=== PATIENT | male | born 1975 | race African-American/Black ===

== ENCOUNTER 2016-07-14 10:32 | Emergency (ER) | payer OTHER ==
[2016-07-14 10:38] VITALS: TEMP 98; BMI 22.9
--- NOTE | 2016-07-14 11:01 | PDOC ---
History of Present Illness - General Chief Complaint: Lightheaded Stated Complaint: WEAKNESS,DIZINESS,NAUSEA Time Seen by Provider: 07/14/16 10:57 History Source: Patient Exam Limitations: No Limitations - History of Present Illness Initial Comments: CHIEF COMPLAINT: 40 y/o afebrile male with PMH chronic marijuana and PCP abuse complaining of lightheaded, nausea, and dizziness this morning. HISTORY OF PRESENT ILLNESS: The patient was at his group meeting this morning when he states he began feeling "not well". He admits to feeling lightheaded, dizzy and nauseous. He did smoke marijuana this morning and PCP last night. He did eat breakfast this morning. He denies f/c, ROB, neck pain, cough, CP, SOB , v/d, abd pain, body aches. Vital signs on arrival are within normal limits. REVIEW OF SYSTEMS: GENERAL/CONSTITUTIONAL: No fever/chills. No weakness. No weight change. HEAD, EYES, EARS, NOSE AND THROAT: No change in vision. No ear pain or discharge. No sore throat. CARDIOVASCULAR: No chest pain or shortness of breath. RESPIRATORY: No cough, wheezing, or hemoptysis. GASTROINTESTINAL: +nausea. No vomiting, diarrhea, constipation, abd pain. GENITOURINARY: No dysuria, frequency, or change in urination. MUSCULOSKELETAL: No joint or muscle swelling or pain. No neck or back pain. SKIN: No rash or easy bruising. NEUROLOGIC: +lightheaded. No headache, loss of consciousness, or loss of sensation. PHYSICAL EXAM: GENERAL: The patient is awake, alert, and fully oriented, in no acute distress. He is well appearing and ambulatory. HEAD: Normal with no signs of trauma. ENT: Pupils equal, round and reactive to light, extraocular movements intact, sclera anicteric, conjunctiva clear. Neck supple. LUNGS: Clear to auscultation bilaterally. Normal excursion. No respiratory distress or use of accessory muscles. CV: RRR, S1/S2, no MRG. Cap refill < 2 sec. ABDOMEN: Soft, non-distended, non-tender even to deep palpation, no hepatomegaly or splenomegaly, no masses. EXTREMITIES: Normal range of motion, no edema. NEUROLOGICAL: Normal speech, normal gait. CN II-XII grossly intact. PSYCH: Normal mood, normal affect. SKIN: Warm, dry, normal turgor, no rashes or lesions noted. Past History - Past Medical History Allergies/Adverse Reactions: Allergies Allergy/AdvReac Type Severity Reaction Status Date / Time No Known Allergies Allergy Verified 07/14/16 10:35 Home Medications: Ambulatory Orders NK [No Known Home Medication] 07/14/16 Other medical history: pcp abuse, shahid - Psycho/Social/Smoking Cessation Hx Anxiety: No Suicidal Ideation: No Smoking History: Current every day smoker Have you smoked in the past 12 months: Yes Number of Cigarettes Smoked Daily: 7 Information on smoking cessation initiated: Yes 'Breaking Loose' booklet given: 07/14/16 Hx Alcohol Use: No Drug/Substance Use Hx: No Substance Use Type: Marijuana *Physical Exam - Vital Signs Last Vital Signs Temp Pulse Resp BP Pulse Ox 98.0 F 72 18 113/72 100 07/14/16 10:36 07/14/16 10:36 07/14/16 10:36 07/14/16 10:36 07/14/16 10:36 Heart Score/ECG Review - ECG Intrepretation Comment:: Twelve-lead EKG was performed and reviewed by Dr. Maloney. There is normal sinus rhythm with a normal rate. The axis is normal. The intervals are normal. There are no ST or T wave abnormalities. Impression: Normal twelve-lead EKG ED Treatment Course - LABORATORY CBC & Chemistry Diagram: 07/14/16 11:26 07/14/16 11:26 Medical Decision Making - Medical Decision Making A/P: 40 y/o afebrile male with c/o nausea, dizziness and lightheaded today. Plan is as follows: 1. labs 2. EKG 3. CXR 4. IV fluids 5. IV zofran CXR IMPRESSION: Normal chest. Labs unremarkable EKG ok The patient states he feels much better after fluids and zofran. Will discharge to home with supportive care instructions. Instructed him to return to the ER with any worsening or concerning symptoms. The patient verbalizes understanding of all instructions, has no further questions and is awaiting discharge. *DC/Admit/Observation/Transfer Diagnosis at time of Disposition: Light-headed feeling, Nausea - Discharge Dispostion Disposition: HOME Condition at time of disposition: Improved - Referrals Referrals: Honorio Palomino MD [Primary Care Provider] - - Patient Instructions Printed Discharge Instructions: DI for Nausea -- Adult, DI for Dizziness- Nonvertigo Additional Instructions: Discharge Instructions: -Drink at least 64oz of water daily -Get plenty of rest -Follow up with your doctor within 1 week -Return to the ER with any worsening or concerning symptoms
[2016-07-14] MEDS ORDERED: ONDANSETRON 4 MG/2 ML VIAL IVPUSH ONE (11:08)
[2016-07-14] MEDS ORDERED: SODIUM CHLORIDE 1,000 ML IV STA (11:08)
[2016-07-14] MEDS ORDERED: ONDANSETRON 4 MG/2 ML VIAL ONE (11:28)
[2016-07-14 11:31] LABS: BASOPHIL 1.3 % (0-2.0); EOSINOPHIL 3.8 % (0-4.5); MCH 27.3 pg (25.7-33.7); MEAN CELL VOLUME 82.8 fl (80-96); NEUTROPHILS 52.3 % (42.8-82.8); PLATELET COUNT 214 K/MM3 (134-434); WHITE BLOOD COUNT 4.7 K/mm3 (4.0-10.0)
[2016-07-14 11:43] LABS: INR 1.17 (0.82-1.09); PROTHROMBIN TIME (PATIENT) 12.9 SEC (9.98-11.88)
--- NOTE | 2016-07-14 12:02 | PDOC ---
*Physical Exam - Vital Signs Last Vital Signs Temp Pulse Resp BP Pulse Ox 98.0 F 72 18 113/72 100 07/14/16 10:36 07/14/16 10:36 07/14/16 10:36 07/14/16 10:36 07/14/16 10:36 Heart Score/ECG Review #1 ECG reviewed & interpreted by me at: 11:59 07/14/16 11:59 Twelve-lead EKG was performed and reviewed by me. There is normal sinus rhythm with a normal rate OF 72 bpm. Left axis deviation. The intervals are normal - pr:162ms, QRS:120ms, QTc:424ms. There are no ST elevation or depression. T waves nml ED Treatment Course - LABORATORY CBC & Chemistry Diagram: 07/14/16 11:26 07/14/16 11:26 - ADDITIONAL ORDERS Additional order review: Laboratory Results 07/14/16 11:26 INR 1.17 H 07/14/16 11:26 RBC 4.48 MCV 82.8 MCHC 33.0 RDW 14.0 MPV 7.0 L Neutrophils % 52.3 Lymphocytes % 32.0 Monocytes % 10.6 H Eosinophils % 3.8 Basophils % 1.3 - RADIOLOGY Radiology Studies Ordered: Category Date Time Status CHEST X-RAY PORTABLE* [RAD] Stat Radiology 07/14/16 10:54 Completed Medical Decision Making - Medical Decision Making 07/14/16 11:59 Pt seen by Midlevel Provider under my direct supervision Ancillary studies reviewed I agree with plan as outlined by Midlevel Provider *DC/Admit/Observation/Transfer Diagnosis at time of Disposition: Light-headed feeling, Nausea - Discharge Dispostion Disposition: HOME Condition at time of disposition: Improved - Referrals Referrals: Honorio Palomino MD [Primary Care Provider] - - Patient Instructions Printed Discharge Instructions: DI for Nausea -- Adult, DI for Dizziness- Nonvertigo Additional Instructions: Discharge Instructions: -Drink at least 64oz of water daily -Get plenty of rest -Follow up with your doctor within 1 week -Return to the ER with any worsening or concerning symptoms
[2016-07-14 12:04] LABS: ALBUMIN 3.8 g/dl (3.4-5.0); ALK PHOS 69 U/L (45-117); ANION GAP 9 (8-16); BILIRUBIN,TOTAL 0.4 mg/dL (0.2-1.0); CALCIUM 8.5 mg/dL (8.5-10.1); CO2 28 mmol/L (21-32); CREATININE 0.8 mg/dL (0.7-1.3); GLUCOSE,RANDOM 87 mg/dL (74-106); SGOT/AST 20 U/L (15-37); SGPT/ALT 17 U/L (12-78)
[2016-07-14 12:06] LABS: TROPONIN I < 0.02 ng/ml (0.00-0.05)
[2016-07-14] MEDS ORDERED: KETOROLAC TROMETHAMINE 30 MG/1 ML VIAL IVPUSH ONE (13:58)
[2016-07-14] MEDS ORDERED: KETOROLAC TROMETHAMINE 30 MG/1 ML VIAL ONE (14:06)
[2016-07-14 15:06] LABS: URINE APPEARANCE CLEAR; URINE BILIRUBIN NEGATIVE (NEGATIVE); URINE BLOOD NEGATIVE (NEGATIVE); URINE COLOR LTYELLOW; URINE GLUCOSE (UA) NEGATIVE (NEGATIVE); URINE KETONE NEGATIVE (NEGATIVE); URINE NITRITE NEGATIVE (NEGATIVE); URINE PROTEIN NEGATIVE (NEGATIVE); URINE UROBILINOGEN NEGATIVE E.U./dl (0.2-1.0)
[2016-07-14 15:07] LABS: URINE LEUK ESTERASE TRACE (NEGATIVE)
[2016-07-14 15:10] LABS: URINE MUCUS RARE; URINE RBC 1 /hpf (0-3); URINE WBC 8 /hpf (3-5)
[2016-07-14 15:23] LABS: URINE MARIJUANA THC POSITIVE ng/ml (CUTOFF=50)
--- NOTE | 2016-07-14 15:46 | EKG ---
Test Reason : Blood Pressure : / mmHG Vent. Rate : 072 BPM Atrial Rate : 072 BPM P-R Int : 162 ms QRS Dur : 120 ms QT Int : 388 ms P-R-T Axes : 074 -46 042 degrees QTc Int : 424 ms NORMAL SINUS RHYTHM LEFT ANTERIOR FASCICULAR BLOCK SEPTAL INFARCT , AGE UNDETERMINED ABNORMAL ECG NO PREVIOUS ECGS AVAILABLE Confirmed by KIRK JARAMILLO MD ([id number]) on 07/14/2016 3:46:00 PM Referred By: Confirmed By:KIRK JARAMILLO MD
[2016-07-14 15:50] VITALS: BP 116/68; PULSE 62
== END 2016-07-14 15:49 | disposition home or self-care (01) ==
LOC: JER 10:32
PROC: 3E0333Z Introduction of Anti-inflammatory into Peripheral Vein, Percutaneous Approach (ICD-10-PCS; principal; 2016-07-14)
PROC: 3E033GC Introduction of Other Therapeutic Substance into Peripheral Vein, Percutaneous Approach (ICD-10-PCS; 2016-07-14)
PROC: 3E0337Z Introduction of Electrolytic and Water Balance Substance into Peripheral Vein, Percutaneous Approach (ICD-10-PCS; 2016-07-14)
DX: R42 Dizziness and giddiness (principal); R11.0 Nausea; F17.210 Nicotine dependence, cigarettes, uncomplicated
CPT/HCPCS: 36415; 71010-TC; 80053; 80307; 81003; 81015; 82550; 82553; 84484; 85025; 85610; 93005; 93010; 96361; 96374; 96375; 99284-25

== ENCOUNTER 2016-08-25 13:06 | Inpatient (IN) | payer OTHER ==
[2016-08-25 14:05] VITALS: BMI 22.1
--- NOTE | 2016-08-25 20:19 | HP ---
Admission ROS [facility] Chief Complaint: seeking rehab for pcp and thc use Allergies/Adverse Reactions: Allergies Allergy/AdvReac Type Severity Reaction Status Date / Time No Known Allergies Allergy Verified 08/25/16 19:53 History of Present Illness: 40 Y.O. MALE WITH CANNABIS AND PCP DEPENDENCE ADMITTED TO REHAB. DENIES PREVIOUS DETOX /REHAB SERVICES. DENIES ANY SIGNIFICANT PERIOD OF CLEAN TIME. Exam Limitations: No Limitations - Ebola screening Have you traveled outside of the country in the last 21 days: No Have you had contact with anyone from an Ebola affected area: No Have you been sick,other than usual withdrawal symptoms: No Do you have a fever: No - Review of Systems Constitutional: No Symptoms Reported EENT: reports: No Symptoms Reported Respiratory: reports: No Symptoms reported Cardiac: reports: No Symptoms Reported GI: reports: No Symptoms Reported : reports: No Symptoms Reported Musculoskeletal: reports: No Symptoms Reported Integumentary: reports: No Symptoms Reported Neuro: reports: No Symptoms reported Endocrine: reports: No Symptoms Reported Hematology: reports: No Symptoms Reported Psychiatric: reports: No Sypmtoms Reported Other Systems: Reviewed and Negative Patient History - Patient Medical History Hx Anemia: No Hx Asthma: No Hx Chronic Obstructive Pulmonary Disease (COPD): No Hx Cancer: No Hx Cardiac Disorders: No Hx Congestive Heart Failure: No Hx Hypertension: No Hx Hypercholesterolemia: No Hx Pacemaker: Yes (NON COMPLIANT WITH MEDS) HX Cerebrovascular Accident: No Hx Seizures: No Hx Dementia: No Hx Diabetes: No Hx Gastrointestinal Disorders: No Hx Liver Disease: No Hx Genitourinary Disorders: No Hx Sexually Transmitted Disorders: No Hx Renal Disease (ESRD): No Hx Thyroid Disease: No Hx Human Immunodeficiency Virus (HIV): No Hx Hepatitis C: No Hx Depression: Yes (NON COMPLIANT WITH MEDS) Hx Suicide Attempt: No Hx Bipolar Disorder: No Hx Schizophrenia: No Other Medical History: INSOMNIA - Patient Surgical History Past Surgical History: No - PPD History Previous Implant?: Yes Documented Results: Negative w/o proof Implanted On Prior R Admission?: No PPD to be Administered?: Yes - Smoking Cessation Smoking history: Current every day smoker Have you smoked in the past 12 months: Yes Aproximately how many cigarettes per day: 7 Cigars Per Day: 0 Hx Chewing Tobacco Use: No Initiated information on smoking cessation: Yes 'Breaking Loose' booklet given: 08/25/16 - Substance & Tx. History Hx Alcohol Use: No Hx Substance Use: Yes Substance Use Type: Marijuana, Tranquilizers (PCP) Hx Substance Use Treatment: No - Substances Abused PCP Route: Smoking Frequency: Daily Amount used: 1 BLUNT Age of first use: 25 Date of Last Use: 08/19/16 THC Route: Smoking Frequency: 3-6 times per week Amount used: 1 BLUNT Age of first use: 24 Date of Last Use: 06/27/16 Family Disease History - Family Disease History Family Disease History: Other: Mother (ALCOHOLISM) Admission Physical Exam S - Vital Signs Vital Signs: Vital Signs - 24 hr 08/25/16 14:03 Temperature 96.9 F L Pulse Rate 71 Respiratory 18 Rate Blood Pressure 119/82 Cleared for Admission [facility] - Detox or Rehab Detox Regimen/Protocol: Not Applicable Claeared for Rehab Admission: Yes [facility] Breath Alcohol Content Breath Alcohol Content: 0 Urine Drug Screen - Results Drug Screen Negative: No Urine Drug Screen Results: PCP-Phencyclidine
[2016-08-25] MEDS ORDERED: guaiFENesin/D-METHORPHAN HB 10 ML UNIT-DOSE CUPS PO PRN (20:26)
[2016-08-25] MEDS ORDERED: P-EPHED 60MG/TRIPROLIDI 2.5MG TABLET PO PRN (20:26)
[2016-08-25] MEDS ORDERED: MAG HYDROX/AL HYDROX/SIMETH 30 ML UNIT-DOSE CUP PO PRN (20:26)
[2016-08-25] MEDS ORDERED: MAGNESIUM HYDROX 2400MG/30ML ORAL SUSPENSION 30 ML CUP PO PRN (20:26)
[2016-08-25] MEDS ORDERED: LOPERAMIDE HCL 2 MG CAPSULE PO PRN (20:26)
[2016-08-25] MEDS ORDERED: MENTHOL/PHENOL 1 EACH UD MM PRN (20:26)
[2016-08-25] MEDS ORDERED: hydrOXYzine PAMOATE 50 MG CAPSULE (FP) PO PRN (20:26)
[2016-08-25] MEDS ORDERED: NICOTINE POLACRILEX 2 MG GUM BUC PRN (20:26)
[2016-08-25] MEDS ORDERED: MAGNESIUM CITRATE 300 ML BOTTLE PO PRN (20:26)
[2016-08-25] MEDS ORDERED: diphenhydrAMINE HCL 50 MG CAPSULE PO PRN (20:26)
[2016-08-25] MEDS: THIAMINE HCL 100 MG TABLET (FP) PO SCH (22:22)
[2016-08-25] MEDS: NICOTINE 14 MG/24 HOURS TOPICAL PATCH TD SCH (22:23)
[2016-08-25 22:46] LABS: URINE APPEARANCE CLEAR; URINE BILIRUBIN NEGATIVE (NEGATIVE); URINE BLOOD NEGATIVE (NEGATIVE); URINE COLOR LTYELLOW; URINE GLUCOSE (UA) NEGATIVE (NEGATIVE); URINE KETONE NEGATIVE (NEGATIVE); URINE LEUK ESTERASE NEGATIVE (NEGATIVE); URINE NITRITE NEGATIVE (NEGATIVE); URINE PROTEIN NEGATIVE (NEGATIVE); URINE UROBILINOGEN NEGATIVE E.U./dl (0.2-1.0)
[2016-08-26 10:28] LABS: MCH 27.4 pg (25.7-33.7); MEAN CELL VOLUME 83.1 fl (80-96); MEAN PLT VOLUME 7.9 fl (7.5-11.1); PLATELET COUNT 189 K/MM3 (134-434); RDW 14.5 % (11.9-15.9); WHITE BLOOD COUNT 4.6 K/mm3 (4.0-10.0)
[2016-08-26 10:56] LABS: ALBUMIN 3.5 g/dl (3.4-5.0); ALK PHOS 62 U/L (45-117); ANION GAP 9 (8-16); BILIRUBIN,TOTAL 0.5 mg/dL (0.2-1.0); CALCIUM 8.5 mg/dL (8.5-10.1); CO2 26 mmol/L (21-32); CREATININE 0.8 mg/dL (0.7-1.3); GLUCOSE,RANDOM 67 mg/dL (74-106); SGOT/AST 20 U/L (15-37); SGPT/ALT 19 U/L (12-78); TOT PROT 6.6 g/dl (6.4-8.2)
[2016-08-26] MEDS: NICOTINE 14 MG/24 HOURS TOPICAL PATCH TD SCH (11:11)
[2016-08-26] MEDS: PRENATAL VITAMINS W/ FOLIC ACID TABLET (FP) PO SCH (11:11)
[2016-08-26 13:59] LABS: HIV 1 & 2 AB NEGATIVE; HIV 1 AGp24 NEGATIVE
--- NOTE | 2016-08-26 18:25 | EKG ---
Test Reason : Blood Pressure : / mmHG Vent. Rate : 053 BPM Atrial Rate : 053 BPM P-R Int : 152 ms QRS Dur : 140 ms QT Int : 430 ms P-R-T Axes : 074 -42 -35 degrees QTc Int : 403 ms SINUS BRADYCARDIA LEFT AXIS DEVIATION NON-SPECIFIC INTRA-VENTRICULAR CONDUCTION BLOCK T WAVE ABNORMALITY, CONSIDER INFERIOR ISCHEMIA ABNORMAL ECG WHEN COMPARED WITH ECG OF 14-JUL-2016 11:13, CRITERIA FOR SEPTAL INFARCT ARE NO LONGER PRESENT T WAVE INVERSION NOW EVIDENT IN INFERIOR LEADS Confirmed by KEENAN SALAZAR MD ([id number]) on 08/26/2016 6:25:23 PM Referred By: Alena Dyer Confirmed By:KEENAN SALAZAR MD
[2016-08-26] MEDS: THIAMINE HCL 100 MG TABLET (FP) PO SCH (22:25)
[2016-08-27] MEDS: PRENATAL VITAMINS W/ FOLIC ACID TABLET (FP) PO SCH (09:29)
[2016-08-27] MEDS: NICOTINE 14 MG/24 HOURS TOPICAL PATCH TD SCH (09:29)
[2016-08-27] MEDS: THIAMINE HCL 100 MG TABLET (FP) PO SCH (22:40)
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
[2016-08-28] MEDS: PRENATAL VITAMINS W/ FOLIC ACID TABLET (FP) PO SCH (09:40)
[2016-08-28] MEDS: NICOTINE 14 MG/24 HOURS TOPICAL PATCH TD SCH (09:40)
[2016-08-28] MEDS ORDERED: PT OWN MED DRAWER 7, Y5N ONE (11:19)
[2016-08-28] MEDS: SERTRALINE HCL 50 MG TABLET (FP) PO SCH (11:24)
[2016-08-28] MEDS: THIAMINE HCL 100 MG TABLET (FP) PO SCH (21:10)
[2016-08-28] MEDS: traZODone HCL 50 MG TABLET (FP) PO SCH (21:10)
[2016-08-29] MEDS: NICOTINE 14 MG/24 HOURS TOPICAL PATCH TD SCH (09:47)
[2016-08-29] MEDS: SERTRALINE HCL 50 MG TABLET (FP) PO SCH (09:47)
[2016-08-29] MEDS: PRENATAL VITAMINS W/ FOLIC ACID TABLET (FP) PO SCH (09:47)
[2016-08-29] MEDS: THIAMINE HCL 100 MG TABLET (FP) PO SCH (21:06)
[2016-08-29] MEDS: traZODone HCL 50 MG TABLET (FP) PO SCH (21:06)
[2016-08-30] MEDS: PRENATAL VITAMINS W/ FOLIC ACID TABLET (FP) PO SCH (09:40)
[2016-08-30] MEDS: NICOTINE 14 MG/24 HOURS TOPICAL PATCH TD SCH (09:40)
[2016-08-30] MEDS: SERTRALINE HCL 50 MG TABLET (FP) PO SCH (09:40)
[2016-08-30] MEDS: traZODone HCL 50 MG TABLET (FP) PO SCH (22:19)
[2016-08-30] MEDS: THIAMINE HCL 100 MG TABLET (FP) PO SCH (22:19)
[2016-08-30] MEDS: ACETAMINOPHEN 325 MG TABLET (FP) PO PRN (22:21)
[2016-08-30] MEDS ORDERED: PT OWN MED DRAWER 7, Y5N ONE (22:24)
[2016-08-31] MEDS: IBUPROFEN 400 MG TABLET (FP) PO PRN (08:24)
[2016-08-31] MEDS: PRENATAL VITAMINS W/ FOLIC ACID TABLET (FP) PO SCH (09:40)
[2016-08-31] MEDS: SERTRALINE HCL 50 MG TABLET (FP) PO SCH (09:40)
[2016-08-31] MEDS: NICOTINE 14 MG/24 HOURS TOPICAL PATCH TD SCH (09:41)
[2016-08-31] MEDS: traZODone HCL 50 MG TABLET (FP) PO SCH (21:09)
[2016-08-31] MEDS: THIAMINE HCL 100 MG TABLET (FP) PO SCH (21:09)
[2016-09-01] MEDS: SERTRALINE HCL 50 MG TABLET (FP) PO SCH (09:47)
[2016-09-01] MEDS: PRENATAL VITAMINS W/ FOLIC ACID TABLET (FP) PO SCH (09:47)
[2016-09-01] MEDS: NICOTINE 14 MG/24 HOURS TOPICAL PATCH TD SCH (09:48)
[2016-09-01] MEDS: traZODone HCL 50 MG TABLET (FP) PO SCH (21:07)
[2016-09-01] MEDS: THIAMINE HCL 100 MG TABLET (FP) PO SCH (21:07)
[2016-09-02] MEDS: PRENATAL VITAMINS W/ FOLIC ACID TABLET (FP) PO SCH (09:41)
[2016-09-02] MEDS: SERTRALINE HCL 50 MG TABLET (FP) PO SCH (09:41)
[2016-09-02] MEDS: NICOTINE 14 MG/24 HOURS TOPICAL PATCH TD SCH (09:41)
[2016-09-02] MEDS: THIAMINE HCL 100 MG TABLET (FP) PO SCH (21:15)
[2016-09-02] MEDS: traZODone HCL 50 MG TABLET (FP) PO SCH (21:15)
[2016-09-03] MEDS: NICOTINE 14 MG/24 HOURS TOPICAL PATCH TD SCH (10:52)
[2016-09-03] MEDS: PRENATAL VITAMINS W/ FOLIC ACID TABLET (FP) PO SCH (10:53)
[2016-09-03] MEDS: SERTRALINE HCL 50 MG TABLET (FP) PO SCH (10:53)
[2016-09-03] MEDS: traZODone HCL 50 MG TABLET (FP) PO SCH (21:54)
[2016-09-03] MEDS: THIAMINE HCL 100 MG TABLET (FP) PO SCH (21:54)
[2016-09-04] MEDS: SERTRALINE HCL 50 MG TABLET (FP) PO SCH (09:40)
[2016-09-04] MEDS: PRENATAL VITAMINS W/ FOLIC ACID TABLET (FP) PO SCH (09:40)
[2016-09-04] MEDS: NICOTINE 14 MG/24 HOURS TOPICAL PATCH TD SCH (09:41)
[2016-09-04] MEDS: THIAMINE HCL 100 MG TABLET (FP) PO SCH (21:18)
[2016-09-04] MEDS: traZODone HCL 50 MG TABLET (FP) PO SCH (21:19)
[2016-09-04] MEDS: ACETAMINOPHEN 325 MG TABLET (FP) PO PRN (21:19)
[2016-09-05] MEDS: PRENATAL VITAMINS W/ FOLIC ACID TABLET (FP) PO SCH (09:44)
[2016-09-05] MEDS: SERTRALINE HCL 50 MG TABLET (FP) PO SCH (09:45)
[2016-09-05] MEDS: IBUPROFEN 400 MG TABLET (FP) PO PRN (09:45)
[2016-09-05] MEDS: NICOTINE 14 MG/24 HOURS TOPICAL PATCH TD SCH (09:46)
[2016-09-05] MEDS: THIAMINE HCL 100 MG TABLET (FP) PO SCH (21:31)
[2016-09-05] MEDS: traZODone HCL 50 MG TABLET (FP) PO SCH (21:31)
[2016-09-06] MEDS: SERTRALINE HCL 50 MG TABLET (FP) PO SCH (09:50)
[2016-09-06] MEDS: NICOTINE 14 MG/24 HOURS TOPICAL PATCH TD SCH (09:50)
[2016-09-06] MEDS: PRENATAL VITAMINS W/ FOLIC ACID TABLET (FP) PO SCH (09:50)
[2016-09-06] MEDS: THIAMINE HCL 100 MG TABLET (FP) PO SCH (22:03)
[2016-09-06] MEDS: traZODone HCL 50 MG TABLET (FP) PO SCH (22:03)
[2016-09-07] MEDS: PRENATAL VITAMINS W/ FOLIC ACID TABLET (FP) PO SCH (09:33)
[2016-09-07] MEDS: NICOTINE 14 MG/24 HOURS TOPICAL PATCH TD SCH (09:33)
[2016-09-07] MEDS: SERTRALINE HCL 50 MG TABLET (FP) PO SCH (09:33)
[2016-09-07] MEDS: traZODone HCL 50 MG TABLET (FP) PO SCH (21:18)
[2016-09-07] MEDS: THIAMINE HCL 100 MG TABLET (FP) PO SCH (21:18)
[2016-09-08] MEDS: PRENATAL VITAMINS W/ FOLIC ACID TABLET (FP) PO SCH (10:34)
[2016-09-08] MEDS: NICOTINE 14 MG/24 HOURS TOPICAL PATCH TD SCH (10:34)
[2016-09-08] MEDS: SERTRALINE HCL 50 MG TABLET (FP) PO SCH (10:34)
[2016-09-08] MEDS: THIAMINE HCL 100 MG TABLET (FP) PO SCH (21:47)
[2016-09-08] MEDS: traZODone HCL 50 MG TABLET (FP) PO SCH (21:47)
[2016-09-09] MEDS: NICOTINE 14 MG/24 HOURS TOPICAL PATCH TD SCH (09:44)
[2016-09-09] MEDS: SERTRALINE HCL 50 MG TABLET (FP) PO SCH (09:45)
[2016-09-09] MEDS: PRENATAL VITAMINS W/ FOLIC ACID TABLET (FP) PO SCH (09:45)
[2016-09-09] MEDS: THIAMINE HCL 100 MG TABLET (FP) PO SCH (21:10)
[2016-09-09] MEDS: traZODone HCL 50 MG TABLET (FP) PO SCH (21:10)
[2016-09-10] MEDS: NICOTINE 14 MG/24 HOURS TOPICAL PATCH TD SCH (09:55)
[2016-09-10] MEDS: SERTRALINE HCL 50 MG TABLET (FP) PO SCH (09:55)
[2016-09-10] MEDS: PRENATAL VITAMINS W/ FOLIC ACID TABLET (FP) PO SCH (09:55)
[2016-09-10] MEDS: THIAMINE HCL 100 MG TABLET (FP) PO SCH (21:27)
[2016-09-10] MEDS: traZODone HCL 50 MG TABLET (FP) PO SCH (21:27)
--- NOTE | 2016-09-11 06:59 | PN ---
Psychiatric Progress Note Vital Signs: Vital Signs Period Temp Pulse Resp BP Sys/[place] Pulse Ox Last 24 Hr 98.0 F 65 18-18 91/58 Date of Session: 09/11/16 Chief Complaint:: Psychiatrist Discharge Note HPI: Patient addressing Cannabis and Phencyclidine Dependence comorbid with Nicotine Dependence and Posttraumatic Stress Disorder ROS: Hyperlipidemia was medically managed Current Medications: Active Medications Generic Name Dose Route Start Last Admin Trade Name Freq PRN Reason Stop Dose Admin Acetaminophen 650 mg 08/25/16 20:26 09/04/16 21:19 Tylenol - PO 650 mg Q4H PRN Administration PAIN Al Hydroxide/Mg Hydroxide 30 ml 08/25/16 20:26 Mylanta Oral Suspension - PO Q6H PRN DYSPEPSIA Diphenhydramine HCl 50 mg 08/25/16 20:26 08/25/16 22:22 Benadryl - PO 50 mg HSMR1 PRN Administration INSOMNIA Eucalyptus/Menthol/Phenol/Sorbitol 1 each 08/25/16 20:26 Cepastat Lozenge - MM Q4H PRN SORE THROAT Guaifenesin 10 ml 08/25/16 20:26 Robitussin Dm - PO Q6H PRN COUGH Hydroxyzine Pamoate 50 mg 08/25/16 20:26 Vistaril - PO Q4H PRN AGITATION Ibuprofen 400 mg 08/25/16 20:26 09/05/16 09:45 Motrin - PO 400 mg Q6H PRN Administration SEVERE PAIN Loperamide HCl 4 mg 08/25/16 20:26 Imodium - PO Q6H PRN DIARRHEA Magnesium Citrate 300 ml 08/25/16 20:26 Citroma - PO Q2D PRN CONSTIPATION Magnesium Hydroxide 30 ml 08/25/16 20:26 Milk Of Magnesia - PO DAILY PRN CONSTIPATION Nicotine 14 mg 08/25/16 20:30 09/10/16 09:55 Nicoderm Patch - TD 14 mg DAILY CITLALI Administration Nicotine Polacrilex 2 mg 08/25/16 20:26 08/25/16 22:24 Nicorette Gum - BUC 2 mg Q2H PRN Administration NICOTINE REPLACEMENT RX Multivit/Folic Acid/Iron 1 tab 08/26/16 10:00 09/10/16 09:55 Vitamins (Sjr) - PO 1 tab DAILY CITLALI Administration Pseudoephedrine/Triprolidine 1 combo 08/25/16 20:26 Actifed - PO TID PRN NASAL CONGESTION Sertraline HCl 50 mg 08/28/16 10:45 09/10/16 09:55 Zoloft - PO 50 mg DAILY CITLALI Administration Thiamine HCl 100 mg 08/25/16 22:00 09/10/16 21:27 Vitamin B1 - PO 100 mg HS CITLALI Administration Trazodone HCl 50 mg 08/28/16 22:00 09/10/16 21:27 Desyrel - PO 50 mg HS CITLALI Administration Current Side Effect: No Lab tests ordered: Yes Lab tests reviewed: Yes Provider note:: Patient has completed this program today. He has met his treatment goals and will continue to address his issues in outpatient treatment at [facility] at [address] [place] [address]. Told insurance underwriter that from his participation in this program, he has learned the importance of attending meeting and get a sponsor. He responded well to Zoloft 50 mg po daily and Trazadone 50 mg po HS. Scripts for these medications are electronically transmitted to [facility] at [address] [place] [address]. He is stable for discharge today Total face to face time:: 35 Mental Status Exam - Mental Status Exam Alert and Oriented to: Time, Place, Person Cognitive Function: Fair Patient Appearance: Well Groomed Mood: Hopeful, Euthymic Affect: Appropriate Patient Behavior: Cooperative Speech Pattern: Clear Voice Loudness: Normal Thought Process: Intact Thought Disorder: Not Present Hallucinations: Denies Suicidal Ideation: Denies Homicidal Ideation: Denies Insight/Judgement: Fair Sleep: Fair Appetite: Good Muscle strength/Tone: Normal Gait/Station: Normal Psychiatric Treatment Plan - Problem List (1) Cannabis dependence Current Visit: Yes (2) Phencyclidine dependence Current Visit: Yes (3) Nicotine dependence Current Visit: Yes (4) PTSD (post-traumatic stress disorder) Current Visit: Yes (5) Hyperlipidemia Current Visit: Yes Initial treatment plan: Patient is discharged today and referred to [facility] for outpatient treatment
[2016-09-11 07:47] VITALS: BP 132/81; PULSE 67; TEMP 97.6
[2016-09-11] MEDS: PRENATAL VITAMINS W/ FOLIC ACID TABLET (FP) PO SCH (09:41)
[2016-09-11] MEDS: NICOTINE 14 MG/24 HOURS TOPICAL PATCH TD SCH (09:41)
[2016-09-11] MEDS: SERTRALINE HCL 50 MG TABLET (FP) PO SCH (09:41)
== END 2016-09-11 10:00 | disposition home or self-care (01) | DRG 772 ==
LOC: YASAS 13:06 → Y3W 18:25
PROVIDERS: ADMIT Psychiatry & Neurology Psychiatry; ATTEND Psychiatry & Neurology Psychiatry
PROC: HZ42ZZZ Group Counseling for Substance Abuse Treatment, Cognitive-Behavioral (ICD-10-PCS; principal; 2016-09-11)
DX: F12.20 Cannabis dependence, uncomplicated (principal); F16.20 Hallucinogen dependence, uncomplicated; F17.210 Nicotine dependence, cigarettes, uncomplicated; F43.10 Post-traumatic stress disorder, unspecified; E78.5 Hyperlipidemia, unspecified
CPT/HCPCS: 36415; 80053; 81003; 85027; 86593; 87389; 93005; 93010

== ENCOUNTER 2017-04-06 12:58 | Inpatient (IN) | payer OTHER ==
[2017-04-06 15:08] VITALS: BMI 21.4
--- NOTE | 2017-04-06 17:17 | HP ---
Admission ROS [facility] Chief Complaint: 41 years old male with history of opioid dependence is admitted to rehab. Patient has had previous detoxs Allergies/Adverse Reactions: Allergies Allergy/AdvReac Type Severity Reaction Status Date / Time No Known Allergies Allergy Verified 04/06/17 17:11 History of Present Illness: 41 years old male with PCP dependence is admitted to rehab. and reports history of hyperlipidemia and depression. Patient has been in previous rehab but does not remember the name or dosage of his prescribed medications. He has medical history of hypercholesterolemia and depression Exam Limitations: No Limitations - Ebola screening Have you traveled outside of the country in the last 21 days: No Have you had contact with anyone from an Ebola affected area: No Have you been sick,other than usual withdrawal symptoms: No Do you have a fever: No - Review of Systems Constitutional: No Symptoms Reported EENT: reports: No Symptoms Reported Respiratory: reports: No Symptoms reported Cardiac: reports: No Symptoms Reported GI: reports: No Symptoms Reported : reports: No Symptoms Reported Musculoskeletal: reports: No Symptoms Reported Integumentary: reports: No Symptoms Reported, Other (tatoos: right hand (2), left forearm, right neck, left leg and back) Neuro: reports: No Symptoms reported Endocrine: reports: No Symptoms Reported Hematology: reports: No Symptoms Reported Psychiatric: reports: Mood/Affect Appropiate, Orientated x3 Other Systems: Reviewed and Negative Patient History - Patient Medical History Hx Anemia: No Hx Asthma: No Hx Chronic Obstructive Pulmonary Disease (COPD): No Hx Cancer: No Hx Cardiac Disorders: No Hx Congestive Heart Failure: No Hx Hypertension: No Hx Hypercholesterolemia: Yes (Meds unknown) HX Cerebrovascular Accident: No Hx Seizures: No Hx Dementia: No Hx Diabetes: No Hx Gastrointestinal Disorders: No Hx Liver Disease: No Hx Genitourinary Disorders: No Hx Sexually Transmitted Disorders: No Hx Renal Disease (ESRD): No Hx Thyroid Disease: No Hx Human Immunodeficiency Virus (HIV): No (Negative January 2017) Hx Hepatitis C: No (Negative January 2017) Hx Depression: Yes Hx Suicide Attempt: No (Denies suicidal ideation) Hx Bipolar Disorder: No Hx Schizophrenia: No - Patient Surgical History Past Surgical History: No - PPD History Previous Implant?: Yes ([facility], 2016) Documented Results: Negative w/proof Implanted On Prior [facility] Admission?: Yes Date: 03/26/17 PPD to be Administered?: No - Reproductive History Patient is a Female of Child Bearing Age (11 -55 yrs old): No (MALE) - Smoking Cessation Smoking history: Current every day smoker Have you smoked in the past 12 months: Yes Aproximately how many cigarettes per day: 7 Cigars Per Day: 0 Hx Chewing Tobacco Use: No Initiated information on smoking cessation: Yes 'Breaking Loose' booklet given: 04/06/17 - Substance & Tx. History Hx Alcohol Use: No Hx Substance Use: Yes (PCP) Hx Substance Use Treatment: Yes - Substances Abused PCP Route: Smoking Frequency: 1-2 times per week Amount used: 1 joint Age of first use: 28 Date of Last Use: 03/30/17 Family Disease History - Family Disease History Family Disease History: Heart Disease: Father, Other: Mother (ALCOHOLISM) Admission Physical Exam [facility] - Vital Signs Vital Signs: Vital Signs - 24 hr 04/06/17 14:40 Temperature 98.9 F Pulse Rate 88 Respiratory 18 Rate Blood Pressure 108/80 - Physical General Appearance: Yes: Within Normal Limits HEENTM: Yes: EOMI, Normal Voice, WENDY Respiratory: Yes: Within Normal Limits Neck: Yes: Within Normal Limits Breast: Yes: Breast Exam Deferred Cardiology: Yes: Within Normal Limits Genitourinary: Yes: Within Normal Limits Back: Yes: Within Normal Limits Musculoskeletal: Yes: Within Normal Limits Extremities: Yes: Within Normal Limits Neurological: Yes: Within Normal Limits Integumentary: Yes: Within Normal Limits Lymphatic: Yes: Within Normal Limits - Diagnostic (1) Hyperlipidemia Current Visit: Yes Status: Chronic (2) Nicotine dependence Current Visit: Yes Status: Chronic (3) Phencyclidine dependence Current Visit: Yes Status: Chronic (4) Depression Current Visit: Yes Status: Chronic Cleared for Admission [facility] - Detox or Rehab [facility] Level of Care: Observation Bed Claeared for Rehab Admission: Yes [facility] Breath Alcohol Content Breath Alcohol Content: 0 Urine Drug Screen - Results Drug Screen Negative: No Urine Drug Screen Results: PCP-Phencyclidine Inpatient Rehab Admission - Initial Determination Are CD services needed?: Yes Free of communicable disease: Yes Not in need of hospitalization: Yes - Rehab Admission Criteria Previous failed treatment: Yes Poor recovery environment: Yes Comorbidities: Yes Lacks judgement: No Patient is meeting Inpatient Rehab admission criteria:: Yes
[2017-04-06] MEDS ORDERED: MENTHOL/PHENOL 1 EACH UD MM PRN (17:33)
[2017-04-06] MEDS ORDERED: LOPERAMIDE HCL 2 MG CAPSULE PO PRN (17:33)
[2017-04-06] MEDS ORDERED: guaiFENesin/D-METHORPHAN HB 10 ML UNIT-DOSE CUPS PO PRN (17:33)
[2017-04-06] MEDS ORDERED: MAGNESIUM HYDROX 2400MG/30ML ORAL SUSPENSION 30 ML CUP PO PRN (17:33)
[2017-04-06] MEDS ORDERED: MAG HYDROX/AL HYDROX/SIMETH 30 ML UNIT-DOSE CUP PO PRN (17:33)
[2017-04-06] MEDS ORDERED: ACETAMINOPHEN 325 MG TABLET (FP) PO PRN (17:33)
[2017-04-06] MEDS ORDERED: NICOTINE POLACRILEX 2 MG GUM BC PRN (17:33)
[2017-04-06] MEDS ORDERED: MAGNESIUM CITRATE 300 ML BOTTLE PO PRN (17:33)
[2017-04-06] MEDS ORDERED: P-EPHED 60MG/TRIPROLIDI 2.5MG TABLET PO PRN (17:33)
[2017-04-06] MEDS: THIAMINE HCL 100 MG TABLET (FP) PO SCH (21:25)
[2017-04-06] MEDS: traZODone HCL 50 MG TABLET (FP) PO SCH (21:25)
[2017-04-07 01:44] LABS: URINE APPEARANCE CLEAR; URINE BILIRUBIN NEGATIVE (NEGATIVE); URINE BLOOD 1+ (NEGATIVE); URINE COLOR LTYELLOW; URINE GLUCOSE (UA) NEGATIVE (NEGATIVE); URINE KETONE NEGATIVE (NEGATIVE); URINE NITRITE NEGATIVE (NEGATIVE); URINE PROTEIN NEGATIVE (NEGATIVE); URINE UROBILINOGEN NEGATIVE mg/dL (0.2-1.0)
[2017-04-07 01:54] LABS: URINE MUCUS RARE
[2017-04-07 01:55] LABS: URINE RBC 15; URINE WBC 14
[2017-04-07] MEDS: PRENATAL VITAMINS W/ FOLIC ACID TABLET (FP) PO SCH (09:42)
[2017-04-07] MEDS: SERTRALINE HCL 50 MG TABLET (FP) PO SCH (09:42)
[2017-04-07] MEDS: NICOTINE 14 MG/24 HOURS TOPICAL PATCH TD SCH (09:42)
[2017-04-07 10:11] LABS: MCH 27.2 pg (25.7-33.7); MCHC 33.6 g/dl (32.0-35.9); MEAN CELL VOLUME 80.9 fl (80-96); MEAN PLT VOLUME 7.4 fl (7.5-11.1); PLATELET COUNT 208 K/MM3 (134-434); WHITE BLOOD COUNT 4.7 K/mm3 (4.0-10.0)
[2017-04-07 10:31] LABS: ALBUMIN 3.5 g/dl (3.4-5.0); ANION GAP 4 (8-16); CALCIUM 8.4 mg/dL (8.5-10.1); CO2 30 mmol/L (21-32); GLUCOSE,RANDOM 73 mg/dL (74-106)
[2017-04-07 10:37] LABS: ALK PHOS 78 U/L (45-117); BILIRUBIN,TOTAL 0.7 mg/dL (0.2-1.0); CREATININE 0.7 mg/dL (0.7-1.3); SGOT/AST 11 U/L (15-37); SGPT/ALT 18 U/L (12-78); TOT PROT 6.5 g/dl (6.4-8.2)
[2017-04-07 12:17] LABS: URINE LEUK ESTERASE TRACE (NEGATIVE)
[2017-04-07 13:03] LABS: HIV 1 & 2 AB NEGATIVE; HIV 1 AGp24 NEGATIVE
[2017-04-07] MEDS: THIAMINE HCL 100 MG TABLET (FP) PO SCH (21:18)
[2017-04-07] MEDS: traZODone HCL 50 MG TABLET (FP) PO SCH (21:18)
[2017-04-08] MEDS: PRENATAL VITAMINS W/ FOLIC ACID TABLET (FP) PO SCH (09:54)
[2017-04-08] MEDS: SERTRALINE HCL 50 MG TABLET (FP) PO SCH (09:54)
[2017-04-08] MEDS: NICOTINE 14 MG/24 HOURS TOPICAL PATCH TD SCH (09:55)
[2017-04-08] MEDS: THIAMINE HCL 100 MG TABLET (FP) PO SCH (21:22)
[2017-04-08] MEDS: traZODone HCL 50 MG TABLET (FP) PO SCH (21:22)
[2017-04-09] MEDS: NICOTINE 14 MG/24 HOURS TOPICAL PATCH TD SCH (09:50)
[2017-04-09] MEDS: PRENATAL VITAMINS W/ FOLIC ACID TABLET (FP) PO SCH (09:50)
[2017-04-09] MEDS: SERTRALINE HCL 50 MG TABLET (FP) PO SCH (09:50)
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
[2017-04-09] MEDS: THIAMINE HCL 100 MG TABLET (FP) PO SCH (21:29)
[2017-04-09] MEDS: traZODone HCL 50 MG TABLET (FP) PO SCH (21:29)
--- NOTE | 2017-04-10 07:45 | EKG ---
Test Reason : Blood Pressure : / mmHG Vent. Rate : 066 BPM Atrial Rate : 066 BPM P-R Int : 158 ms QRS Dur : 122 ms QT Int : 418 ms P-R-T Axes : 077 -44 003 degrees QTc Int : 438 ms NORMAL SINUS RHYTHM LEFT AXIS DEVIATION NON-SPECIFIC INTRA-VENTRICULAR CONDUCTION DELAY NONSPECIFIC T WAVE ABNORMALITY ABNORMAL ECG WHEN COMPARED WITH ECG OF 25-AUG-2016 23:17, NO SIGNIFICANT CHANGE WAS FOUND Confirmed by JESSE CAMPBELL, STEPHANIE ([id number]) on 04/10/2017 7:44:37 AM Referred By: Confirmed By:STEPHANIE MOLINA MD
[2017-04-10] MEDS: SERTRALINE HCL 50 MG TABLET (FP) PO SCH (09:58)
[2017-04-10] MEDS: NICOTINE 14 MG/24 HOURS TOPICAL PATCH TD SCH (09:58)
[2017-04-10] MEDS: PRENATAL VITAMINS W/ FOLIC ACID TABLET (FP) PO SCH (09:58)
[2017-04-10] MEDS: THIAMINE HCL 100 MG TABLET (FP) PO SCH (21:14)
[2017-04-10] MEDS: traZODone HCL 50 MG TABLET (FP) PO SCH (21:14)
[2017-04-11] MEDS: PRENATAL VITAMINS W/ FOLIC ACID TABLET (FP) PO SCH (10:01)
[2017-04-11] MEDS: SERTRALINE HCL 50 MG TABLET (FP) PO SCH (10:01)
[2017-04-11] MEDS: NICOTINE 14 MG/24 HOURS TOPICAL PATCH TD SCH (10:02)
[2017-04-11] MEDS: THIAMINE HCL 100 MG TABLET (FP) PO SCH (21:21)
[2017-04-11] MEDS: traZODone HCL 50 MG TABLET (FP) PO SCH (21:21)
[2017-04-12] MEDS: PRENATAL VITAMINS W/ FOLIC ACID TABLET (FP) PO SCH (10:03)
[2017-04-12] MEDS: NICOTINE 14 MG/24 HOURS TOPICAL PATCH TD SCH (10:03)
[2017-04-12] MEDS: SERTRALINE HCL 50 MG TABLET (FP) PO SCH (10:03)
[2017-04-12] MEDS: traZODone HCL 50 MG TABLET (FP) PO SCH (21:21)
[2017-04-12] MEDS: THIAMINE HCL 100 MG TABLET (FP) PO SCH (21:21)
[2017-04-13] MEDS: PRENATAL VITAMINS W/ FOLIC ACID TABLET (FP) PO SCH (10:06)
[2017-04-13] MEDS: SERTRALINE HCL 50 MG TABLET (FP) PO SCH (10:06)
[2017-04-13] MEDS: NICOTINE 14 MG/24 HOURS TOPICAL PATCH TD SCH (10:06)
[2017-04-13] MEDS: IBUPROFEN 400 MG TABLET (FP) PO PRN ×2 (10:07→21:24)
[2017-04-13] MEDS: THIAMINE HCL 100 MG TABLET (FP) PO SCH (21:23)
[2017-04-13] MEDS: traZODone HCL 50 MG TABLET (FP) PO SCH (21:23)
[2017-04-14] MEDS: NICOTINE 14 MG/24 HOURS TOPICAL PATCH TD SCH (09:51)
[2017-04-14] MEDS: SERTRALINE HCL 50 MG TABLET (FP) PO SCH (09:51)
[2017-04-14] MEDS: PRENATAL VITAMINS W/ FOLIC ACID TABLET (FP) PO SCH (09:51)
[2017-04-14] MEDS: THIAMINE HCL 100 MG TABLET (FP) PO SCH (21:17)
[2017-04-14] MEDS: traZODone HCL 50 MG TABLET (FP) PO SCH (21:17)
[2017-04-15] MEDS: NICOTINE 14 MG/24 HOURS TOPICAL PATCH TD SCH (09:52)
[2017-04-15] MEDS: SERTRALINE HCL 50 MG TABLET (FP) PO SCH (09:52)
[2017-04-15] MEDS: PRENATAL VITAMINS W/ FOLIC ACID TABLET (FP) PO SCH (09:53)
[2017-04-15] MEDS: IBUPROFEN 400 MG TABLET (FP) PO PRN (09:56)
[2017-04-15] MEDS: THIAMINE HCL 100 MG TABLET (FP) PO SCH (21:21)
[2017-04-15] MEDS: traZODone HCL 50 MG TABLET (FP) PO SCH (21:21)
[2017-04-16] MEDS: PRENATAL VITAMINS W/ FOLIC ACID TABLET (FP) PO SCH (09:37)
[2017-04-16] MEDS: NICOTINE 14 MG/24 HOURS TOPICAL PATCH TD SCH (09:37)
[2017-04-16] MEDS: SERTRALINE HCL 50 MG TABLET (FP) PO SCH (09:37)
[2017-04-16] MEDS: THIAMINE HCL 100 MG TABLET (FP) PO SCH (21:25)
[2017-04-16] MEDS: traZODone HCL 50 MG TABLET (FP) PO SCH (21:25)
[2017-04-17] MEDS: PRENATAL VITAMINS W/ FOLIC ACID TABLET (FP) PO SCH (09:44)
[2017-04-17] MEDS: SERTRALINE HCL 50 MG TABLET (FP) PO SCH (09:44)
[2017-04-17] MEDS: NICOTINE 14 MG/24 HOURS TOPICAL PATCH TD SCH (09:44)
[2017-04-17] MEDS: THIAMINE HCL 100 MG TABLET (FP) PO SCH (21:11)
[2017-04-17] MEDS: traZODone HCL 50 MG TABLET (FP) PO SCH (21:11)
[2017-04-18] MEDS: SERTRALINE HCL 50 MG TABLET (FP) PO SCH (09:49)
[2017-04-18] MEDS: PRENATAL VITAMINS W/ FOLIC ACID TABLET (FP) PO SCH (09:49)
[2017-04-18] MEDS: NICOTINE 14 MG/24 HOURS TOPICAL PATCH TD SCH (09:49)
[2017-04-18] MEDS: THIAMINE HCL 100 MG TABLET (FP) PO SCH (21:09)
[2017-04-18] MEDS: traZODone HCL 50 MG TABLET (FP) PO SCH (21:09)
[2017-04-19] MEDS: SERTRALINE HCL 50 MG TABLET (FP) PO SCH (09:57)
[2017-04-19] MEDS: PRENATAL VITAMINS W/ FOLIC ACID TABLET (FP) PO SCH (09:57)
[2017-04-19] MEDS: NICOTINE 14 MG/24 HOURS TOPICAL PATCH TD SCH (09:58)
[2017-04-19] MEDS: THIAMINE HCL 100 MG TABLET (FP) PO SCH (21:16)
[2017-04-19] MEDS: traZODone HCL 50 MG TABLET (FP) PO SCH (21:16)
[2017-04-20] MEDS: PRENATAL VITAMINS W/ FOLIC ACID TABLET (FP) PO SCH (09:47)
[2017-04-20] MEDS: NICOTINE 14 MG/24 HOURS TOPICAL PATCH TD SCH (09:48)
[2017-04-20] MEDS: SERTRALINE HCL 50 MG TABLET (FP) PO SCH (09:48)
[2017-04-20] MEDS: traZODone HCL 50 MG TABLET (FP) PO SCH (21:07)
[2017-04-20] MEDS: THIAMINE HCL 100 MG TABLET (FP) PO SCH (21:07)
[2017-04-21] MEDS: NICOTINE 14 MG/24 HOURS TOPICAL PATCH TD SCH (09:47)
[2017-04-21] MEDS: PRENATAL VITAMINS W/ FOLIC ACID TABLET (FP) PO SCH (09:47)
[2017-04-21] MEDS: SERTRALINE HCL 50 MG TABLET (FP) PO SCH (09:47)
[2017-04-21] MEDS: traZODone HCL 50 MG TABLET (FP) PO SCH (21:11)
[2017-04-21] MEDS: THIAMINE HCL 100 MG TABLET (FP) PO SCH (21:11)
[2017-04-22] MEDS: PRENATAL VITAMINS W/ FOLIC ACID TABLET (FP) PO SCH (09:48)
[2017-04-22] MEDS: NICOTINE 14 MG/24 HOURS TOPICAL PATCH TD SCH (09:48)
[2017-04-22] MEDS: SERTRALINE HCL 50 MG TABLET (FP) PO SCH (09:48)
[2017-04-22] MEDS: traZODone HCL 50 MG TABLET (FP) PO SCH (21:14)
[2017-04-22] MEDS: THIAMINE HCL 100 MG TABLET (FP) PO SCH (21:14)
[2017-04-23] MEDS: PRENATAL VITAMINS W/ FOLIC ACID TABLET (FP) PO SCH (10:42)
[2017-04-23] MEDS: NICOTINE 14 MG/24 HOURS TOPICAL PATCH TD SCH (10:43)
[2017-04-23] MEDS: IBUPROFEN 400 MG TABLET (FP) PO PRN (10:43)
[2017-04-23] MEDS: hydrOXYzine PAMOATE 50 MG CAPSULE (FP) PO PRN (10:43)
[2017-04-23] MEDS: SERTRALINE HCL 50 MG TABLET (FP) PO SCH (10:43)
[2017-04-23] MEDS: CYCLOBENZAPRINE HCL 10 MG TABLET (FP) PO SCH ×2 (14:53→21:18)
[2017-04-23] MEDS: THIAMINE HCL 100 MG TABLET (FP) PO SCH (21:18)
[2017-04-23] MEDS: traZODone HCL 50 MG TABLET (FP) PO SCH (21:18)
[2017-04-24] MEDS: CYCLOBENZAPRINE HCL 10 MG TABLET (FP) PO SCH ×3 (06:36→21:11)
[2017-04-24] MEDS: PRENATAL VITAMINS W/ FOLIC ACID TABLET (FP) PO SCH (10:12)
[2017-04-24] MEDS: NICOTINE 14 MG/24 HOURS TOPICAL PATCH TD SCH (10:12)
[2017-04-24] MEDS: SERTRALINE HCL 50 MG TABLET (FP) PO SCH (10:12)
[2017-04-24] MEDS: THIAMINE HCL 100 MG TABLET (FP) PO SCH (21:11)
[2017-04-24] MEDS: traZODone HCL 50 MG TABLET (FP) PO SCH (21:11)
[2017-04-25] MEDS: CYCLOBENZAPRINE HCL 10 MG TABLET (FP) PO SCH ×3 (06:27→21:10)
[2017-04-25] MEDS: NICOTINE 14 MG/24 HOURS TOPICAL PATCH TD SCH (09:49)
[2017-04-25] MEDS: PRENATAL VITAMINS W/ FOLIC ACID TABLET (FP) PO SCH (09:49)
[2017-04-25] MEDS: SERTRALINE HCL 50 MG TABLET (FP) PO SCH (09:49)
[2017-04-25] MEDS: traZODone HCL 50 MG TABLET (FP) PO SCH (21:10)
[2017-04-25] MEDS: THIAMINE HCL 100 MG TABLET (FP) PO SCH (21:10)
[2017-04-26] MEDS: CYCLOBENZAPRINE HCL 10 MG TABLET (FP) PO SCH ×3 (06:55→21:14)
[2017-04-26] MEDS: PRENATAL VITAMINS W/ FOLIC ACID TABLET (FP) PO SCH (09:45)
[2017-04-26] MEDS: SERTRALINE HCL 50 MG TABLET (FP) PO SCH (09:46)
[2017-04-26] MEDS: NICOTINE 14 MG/24 HOURS TOPICAL PATCH TD SCH (09:46)
[2017-04-26] MEDS: traZODone HCL 50 MG TABLET (FP) PO SCH (21:14)
[2017-04-26] MEDS: THIAMINE HCL 100 MG TABLET (FP) PO SCH (21:14)
[2017-04-27] MEDS: CYCLOBENZAPRINE HCL 10 MG TABLET (FP) PO SCH ×3 (06:20→21:25)
[2017-04-27] MEDS: NICOTINE 14 MG/24 HOURS TOPICAL PATCH TD SCH (09:51)
[2017-04-27] MEDS: PRENATAL VITAMINS W/ FOLIC ACID TABLET (FP) PO SCH (09:51)
[2017-04-27] MEDS: SERTRALINE HCL 50 MG TABLET (FP) PO SCH (09:51)
[2017-04-27] MEDS: THIAMINE HCL 100 MG TABLET (FP) PO SCH (21:25)
[2017-04-27] MEDS: traZODone HCL 50 MG TABLET (FP) PO SCH (21:25)
[2017-04-28] MEDS: CYCLOBENZAPRINE HCL 10 MG TABLET (FP) PO SCH ×3 (06:50→21:17)
[2017-04-28] MEDS: SERTRALINE HCL 50 MG TABLET (FP) PO SCH (10:04)
[2017-04-28] MEDS: NICOTINE 14 MG/24 HOURS TOPICAL PATCH TD SCH (10:04)
[2017-04-28] MEDS: PRENATAL VITAMINS W/ FOLIC ACID TABLET (FP) PO SCH (10:04)
[2017-04-28] MEDS: hydrOXYzine PAMOATE 50 MG CAPSULE (FP) PO PRN (10:05)
[2017-04-28] MEDS: THIAMINE HCL 100 MG TABLET (FP) PO SCH (21:17)
[2017-04-28] MEDS: traZODone HCL 50 MG TABLET (FP) PO SCH (21:17)
[2017-04-29] MEDS: CYCLOBENZAPRINE HCL 10 MG TABLET (FP) PO SCH ×3 (06:47→21:22)
[2017-04-29] MEDS: PRENATAL VITAMINS W/ FOLIC ACID TABLET (FP) PO SCH (10:05)
[2017-04-29] MEDS: NICOTINE 14 MG/24 HOURS TOPICAL PATCH TD SCH (10:05)
[2017-04-29] MEDS: SERTRALINE HCL 50 MG TABLET (FP) PO SCH (10:05)
[2017-04-29] MEDS: THIAMINE HCL 100 MG TABLET (FP) PO SCH (21:22)
[2017-04-29] MEDS: traZODone HCL 50 MG TABLET (FP) PO SCH (21:22)
[2017-04-30] MEDS: CYCLOBENZAPRINE HCL 10 MG TABLET (FP) PO SCH ×3 (06:06→21:22)
[2017-04-30] MEDS: PRENATAL VITAMINS W/ FOLIC ACID TABLET (FP) PO SCH (09:52)
[2017-04-30] MEDS: SERTRALINE HCL 50 MG TABLET (FP) PO SCH (09:52)
[2017-04-30] MEDS: NICOTINE 14 MG/24 HOURS TOPICAL PATCH TD SCH (09:52)
[2017-04-30] MEDS: traZODone HCL 50 MG TABLET (FP) PO SCH (21:22)
[2017-04-30] MEDS: THIAMINE HCL 100 MG TABLET (FP) PO SCH (21:22)
[2017-05-01] MEDS: CYCLOBENZAPRINE HCL 10 MG TABLET (FP) PO SCH ×3 (06:40→21:23)
[2017-05-01] MEDS: NICOTINE 14 MG/24 HOURS TOPICAL PATCH TD SCH (09:47)
[2017-05-01] MEDS: SERTRALINE HCL 50 MG TABLET (FP) PO SCH (09:47)
[2017-05-01] MEDS: PRENATAL VITAMINS W/ FOLIC ACID TABLET (FP) PO SCH (09:47)
[2017-05-01] MEDS: THIAMINE HCL 100 MG TABLET (FP) PO SCH (21:23)
[2017-05-01] MEDS: traZODone HCL 50 MG TABLET (FP) PO SCH (21:23)
[2017-05-02] MEDS: CYCLOBENZAPRINE HCL 10 MG TABLET (FP) PO SCH (06:22)
[2017-05-02] MEDS: PRENATAL VITAMINS W/ FOLIC ACID TABLET (FP) PO SCH (09:46)
[2017-05-02] MEDS: SERTRALINE HCL 50 MG TABLET (FP) PO SCH (09:46)
[2017-05-02] MEDS: NICOTINE 14 MG/24 HOURS TOPICAL PATCH TD SCH (09:46)
[2017-05-02] MEDS: THIAMINE HCL 100 MG TABLET (FP) PO SCH (21:20)
[2017-05-02] MEDS: traZODone HCL 50 MG TABLET (FP) PO SCH (21:20)
[2017-05-03 06:46] VITALS: BP 114/72; PULSE 88; TEMP 97.7
[2017-05-03] MEDS: PRENATAL VITAMINS W/ FOLIC ACID TABLET (FP) PO SCH (09:42)
[2017-05-03] MEDS: SERTRALINE HCL 50 MG TABLET (FP) PO SCH (09:42)
[2017-05-03] MEDS: NICOTINE 14 MG/24 HOURS TOPICAL PATCH TD SCH (09:42)
--- NOTE | 2017-05-03 09:54 | PN ---
Psychiatric Progress Note Vital Signs: Vital Signs Period Temp Pulse Resp BP Sys/[place] Pulse Ox Last 24 Hr 97.7 F 88 16-16 114/72 Date of Session: 05/03/17 Chief Complaint:: discharge visit HPI: Patient has addressed PCP, nicotine dependence comorbid PTSD. ROS: WNL Current Medications: Active Medications Generic Name Dose Route Start Last Admin Trade Name Freq PRN Reason Stop Dose Admin Acetaminophen 650 mg 04/06/17 17:33 04/19/17 09:57 Tylenol - PO 650 mg Q4H PRN Administration PAIN Al Hydroxide/Mg Hydroxide 30 ml 04/06/17 17:33 Mylanta Oral Suspension - PO Q6H PRN DYSPEPSIA Eucalyptus/Menthol/Phenol/Sorbitol 1 each 04/06/17 17:33 Cepastat Lozenge - MM Q4H PRN SORE THROAT Guaifenesin 10 ml 04/06/17 17:33 Robitussin Dm - PO Q6H PRN COUGH Hydroxyzine Pamoate 50 mg 04/06/17 17:33 04/28/17 10:05 Vistaril - PO 50 mg Q4H PRN Administration AGITATION Ibuprofen 400 mg 04/06/17 17:33 04/23/17 10:43 Motrin - PO 400 mg Q6H PRN Administration SEVERE PAIN Loperamide HCl 4 mg 04/06/17 17:33 Imodium - PO Q6H PRN DIARRHEA Magnesium Citrate 300 ml 04/06/17 17:33 Citroma - PO Q48H PRN CONSTIPATION Magnesium Hydroxide 30 ml 04/06/17 17:33 Milk Of Magnesia - PO DAILY PRN CONSTIPATION Nicotine 14 mg 04/07/17 10:00 05/03/17 09:42 Nicoderm Patch - TD 14 mg DAILY CITLALI Administration Nicotine Polacrilex 2 mg 04/06/17 17:33 Nicorette Gum - BC Q2H PRN NICOTINE REPLACEMENT RX Multivit/Folic Acid/Iron 1 tab 04/07/17 10:00 05/03/17 09:42 Vitamins (Sjr) - PO 1 tab DAILY CITLALI Administration Pseudoephedrine/Triprolidine 1 combo 04/06/17 17:33 Actifed - PO TID PRN NASAL CONGESTION Sertraline HCl 50 mg 04/07/17 10:00 05/03/17 09:42 Zoloft - PO 50 mg DAILY CITLALI Administration Thiamine HCl 100 mg 04/06/17 22:00 05/02/17 21:20 Vitamin B1 - PO 100 mg HS CITLALI Administration Trazodone HCl 50 mg 04/06/17 22:00 05/02/17 21:20 Desyrel - PO 50 mg HS CITLALI Administration Current Side Effect: No Lab tests ordered: No Provider note:: Patient has completed today his treatment and met his goals will continue address his issues at [facility] outpatient treatment program. He gained insight into his addiciton and motivated to continue maintain abstinence.He verbalized resolution to stay abstienent and follow every aspects of his aftercare plans. Zoloft and Trazodone well tolerated, patient reports he feels better, scripts provided for 30 days, he is stable for discharge. Total face to face time:: 30 Mental Status Exam - Mental Status Exam Alert and Oriented to: Time, Place, Person Cognitive Function: Good Patient Appearance: Well Groomed Mood: Hopeful Affect: Appropriate, Mood Congruent Patient Behavior: Appropriate, Cooperative Speech Pattern: Clear, Appropriate Voice Loudness: Normal Thought Process: Intact, Goal Oriented Thought Disorder: Not Present Hallucinations: Denies Suicidal Ideation: Denies Homicidal Ideation: Denies Insight/Judgement: Fair Sleep: Well Appetite: Good Muscle strength/Tone: Normal Gait/Station: Normal
== END 2017-05-03 10:00 | disposition home or self-care (01) | DRG 772 ==
LOC: YASAS 12:58 → Y5N 17:34
PROVIDERS: ADMIT Psychiatry & Neurology Psychiatry; ATTEND Psychiatry & Neurology Psychiatry
PROC: HZ42ZZZ Group Counseling for Substance Abuse Treatment, Cognitive-Behavioral (ICD-10-PCS; principal; 2017-04-06)
DX: F16.20 Hallucinogen dependence, uncomplicated (principal); F17.210 Nicotine dependence, cigarettes, uncomplicated; F43.10 Post-traumatic stress disorder, unspecified; F32.9 Major depressive disorder, single episode, unspecified; E78.00 Pure hypercholesterolemia, unspecified
CPT/HCPCS: 36415; 80053; 81003; 81015; 85027; 86593; 87389; 93005; 93010

== ENCOUNTER 2017-05-29 10:42 | Emergency (ER) | payer OTHER ==
[2017-05-29 11:08] VITALS: BP 156/89; TEMP 98.7; BMI 21.4
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
[2017-05-29] MEDS ORDERED: guaiFENesin 200 MG/10 ML 10 ML UNIT-DOSE CUPS PO ONE (11:59)
[2017-05-29] MEDS ORDERED: predniSONE 20 MG TABLET (UD) PO ONE (11:59)
[2017-05-29] MEDS ORDERED: ALBUTEROL SO4 2.5/IPRATROPIUM 0.5 INH SOL 3 ML VIAL.NEB. NEB ONE ×2 (11:59→12:05)
[2017-05-29] MEDS ORDERED: predniSONE 20 MG TABLET (UD) ONE ×2 (12:05→12:08)
[2017-05-29] MEDS ORDERED: guaiFENesin 200 MG/10 ML 10 ML UNIT-DOSE CUPS ONE (12:31)
== END 2017-05-29 13:04 | disposition home or self-care (01) ==
LOC: JERFT 10:42
PROC: 3E0F7GC Introduction of Other Therapeutic Substance into Respiratory Tract, Via Natural or Artificial Opening (ICD-10-PCS; principal; 2017-05-29)
DX: J40 Bronchitis, not specified as acute or chronic (principal); E78.00 Pure hypercholesterolemia, unspecified; F17.210 Nicotine dependence, cigarettes, uncomplicated
CPT/HCPCS: 99281-25

== ENCOUNTER → 2019-01-27 | Outpatient (CLI) | payer OTHER | LOC: YHH 11:43 ==

== ENCOUNTER 2019-03-11 13:58 | Inpatient (IN) | payer OTHER ==
[2019-03-11 14:16] VITALS: BMI 21.7
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
[2019-03-11] MEDS ORDERED: MENTHOL/PHENOL 1 EACH UD MM PRN (15:28)
[2019-03-11] MEDS ORDERED: MAGNESIUM HYDROX 2400MG/30ML ORAL SUSPENSION 30 ML CUP PO PRN (15:28)
[2019-03-11] MEDS ORDERED: MAG HYDROX/AL HYDROX/SIMETH 30 ML UNIT-DOSE CUP PO PRN (15:28)
[2019-03-11] MEDS ORDERED: LOPERAMIDE HCL 2 MG CAPSULE PO PRN (15:28)
[2019-03-11] MEDS ORDERED: ACETAMINOPHEN 325 MG TABLET (FP) PO PRN (15:28)
[2019-03-11] MEDS ORDERED: IBUPROFEN 400 MG TABLET (FP) PO PRN (15:28)
[2019-03-11] MEDS ORDERED: MAGNESIUM CITRATE 300 ML BOTTLE PO PRN (15:28)
[2019-03-11] MEDS ORDERED: guaiFENesin 200 MG/10 ML 10 ML UNIT-DOSE CUPS PO PRN (15:28)
[2019-03-11] MEDS ORDERED: P-EPHED 60MG/TRIPROLIDI 2.5MG TABLET PO PRN (15:28)
[2019-03-11] MEDS ORDERED: ALBUTEROL SO4 8 GM HFA INHALER IH PRN (15:29)
--- NOTE | 2019-03-11 15:40 | PN ---
Teaching Attending Note Name of Resident: Mariano Lamb ATTENDING PHYSICIAN STATEMENT I saw and evaluated the patient. I reviewed the resident's note and discussed the case with the resident. I agree with the resident's findings and plan as documented. SUBJECTIVE: 43 year old male requeting rehab for PCP use , referred by outpt program after relapse > 3 weeks ago , rapoert 2 bags PCP every other day , cannabis weekly , tobacco < 1/2 ppd . Completed rehab > 1 yr ago . PSYch hx : depression OBJECTIVE: wnwd lab report 03/10/19 + PCP , + THC Vital Signs - 24 hr 03/11/19 03/11/19 14:10 14:48 Temperature 97.2 F L 97.2 F L Pulse Rate 78 78 Respiratory 20 20 Rate Blood Pressure 116/83 116/83 ASSESSMENT AND PLAN: PCP abuse / Cannabis abuse, episodic - rehab Nicotine dependence - smoking cessation counselling
[2019-03-11] MEDS: NICOTINE 14 MG/24 HOURS TOPICAL PATCH TD SCH (17:51)
[2019-03-11] MEDS: THIAMINE HCL 100 MG TABLET (FP) PO SCH (22:00)
[2019-03-11] MEDS: MELATONIN 5 MG TABLETS PO PRN (22:00)
[2019-03-11] MEDS: PRAZOSIN HCL 1 MG CAPSULE PO SCH (22:00)
[2019-03-12] MEDS: NICOTINE 14 MG/24 HOURS TOPICAL PATCH TD SCH (10:52)
[2019-03-12] MEDS: PRENATAL VITAMINS W/ FOLIC ACID TABLET (FP) PO SCH (10:52)
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
[2019-03-12 11:59] LABS: HEMOGLOBIN 13.4 GM/dL (11.7-16.9); MCHC 33.4 g/dl (32.0-35.9); MEAN CELL VOLUME 80.8 fl (80-96); MEAN PLT VOLUME 7.7 fl (7.5-11.1); PLATELET COUNT 269 K/MM3 (134-434); RBC 4.95 M/mm3 (4.00-5.60); RDW 16.2 % (11.9-15.9); WHITE BLOOD COUNT 4.8 K/mm3 (4.0-10.0)
[2019-03-12] MEDS ORDERED: hydrOXYzine PAMOATE 25 MG CAPSULE (FP) PO PRN (12:09)
[2019-03-12 12:14] LABS: ALBUMIN 3.4 g/dl (3.4-5.0); BILIRUBIN,TOTAL 0.5 mg/dL (0.2-1); BLOOD UREA NITROGEN 9.9 mg/dL (7-18); CALCIUM 8.9 mg/dL (8.5-10.1); CREATININE 0.8 mg/dL (0.55-1.3); POTASSIUM 3.6 mmol/L (3.5-5.1); TOT PROT 6.9 g/dl (6.4-8.2)
[2019-03-12 17:46] LABS: EPI CELLS 4.6 /HPF (0-5/HPF); HYALINE CASTS 13 /lpf (0-8); URINE APPEARANCE TURBID; URINE BACTERIA 3327.4 /hpf (NEGATIVE); URINE BILIRUBIN NEGATIVE (NEGATIVE); URINE COLOR YELLOW; URINE GLUCOSE (UA) NEGATIVE (NEGATIVE); URINE KETONE NEGATIVE (NEGATIVE); URINE LEUK ESTERASE 3+ (NEGATIVE); URINE NITRITE POSITIVE (NEGATIVE); URINE PROTEIN NEGATIVE (NEGATIVE); URINE RBC 4 /hpf (0-4); URINE UROBILINOGEN 0.2 mg/dL (0.2-1.0); URINE WBC 316 /hpf (0-5)
[2019-03-12] MEDS: MIRTAZAPINE 15 MG TABLET (FP) PO SCH (21:14)
[2019-03-12] MEDS: PRAZOSIN HCL 1 MG CAPSULE PO SCH (21:14)
[2019-03-12] MEDS: MELATONIN 5 MG TABLETS PO PRN (21:15)
[2019-03-12] MEDS: THIAMINE HCL 100 MG TABLET (FP) PO SCH (21:15)
[2019-03-13] MEDS: FLUoxetine HCL 20 MG CAPSULE (FP) PO SCH (10:35)
[2019-03-13] MEDS: NICOTINE 14 MG/24 HOURS TOPICAL PATCH TD SCH (10:35)
[2019-03-13] MEDS: PRENATAL VITAMINS W/ FOLIC ACID TABLET (FP) PO SCH (10:35)
[2019-03-13] MEDS: MIRTAZAPINE 15 MG TABLET (FP) PO SCH (21:49)
[2019-03-13] MEDS: THIAMINE HCL 100 MG TABLET (FP) PO SCH (21:49)
[2019-03-13] MEDS: PRAZOSIN HCL 1 MG CAPSULE PO SCH (21:50)
[2019-03-14] MEDS: FLUoxetine HCL 20 MG CAPSULE (FP) PO SCH (11:00)
[2019-03-14] MEDS: NICOTINE 14 MG/24 HOURS TOPICAL PATCH TD SCH (11:00)
[2019-03-14] MEDS: PRENATAL VITAMINS W/ FOLIC ACID TABLET (FP) PO SCH (11:00)
[2019-03-14] MEDS: MIRTAZAPINE 15 MG TABLET (FP) PO SCH (21:43)
[2019-03-14] MEDS: PRAZOSIN HCL 1 MG CAPSULE PO SCH (21:43)
[2019-03-14] MEDS: THIAMINE HCL 100 MG TABLET (FP) PO SCH (21:43)
[2019-03-15] MEDS: FLUoxetine HCL 20 MG CAPSULE (FP) PO SCH (12:03)
[2019-03-15] MEDS: NICOTINE 14 MG/24 HOURS TOPICAL PATCH TD SCH (12:03)
[2019-03-15] MEDS: PRENATAL VITAMINS W/ FOLIC ACID TABLET (FP) PO SCH (12:03)
[2019-03-15] MEDS: MIRTAZAPINE 15 MG TABLET (FP) PO SCH (21:20)
[2019-03-15] MEDS: PRAZOSIN HCL 1 MG CAPSULE PO SCH (21:21)
[2019-03-15] MEDS: THIAMINE HCL 100 MG TABLET (FP) PO SCH (21:21)
[2019-03-15] MEDS: MELATONIN 5 MG TABLETS PO PRN (21:21)
[2019-03-16] MEDS: PRENATAL VITAMINS W/ FOLIC ACID TABLET (FP) PO SCH (10:57)
[2019-03-16] MEDS: FLUoxetine HCL 20 MG CAPSULE (FP) PO SCH (10:57)
[2019-03-16] MEDS: NICOTINE 14 MG/24 HOURS TOPICAL PATCH TD SCH (10:57)
[2019-03-16] MEDS: PRAZOSIN HCL 1 MG CAPSULE PO SCH (21:20)
[2019-03-16] MEDS: THIAMINE HCL 100 MG TABLET (FP) PO SCH (21:21)
[2019-03-16] MEDS: MELATONIN 5 MG TABLETS PO PRN (21:21)
[2019-03-16] MEDS: MIRTAZAPINE 15 MG TABLET (FP) PO SCH (21:21)
[2019-03-17] MEDS: PRENATAL VITAMINS W/ FOLIC ACID TABLET (FP) PO SCH (10:30)
[2019-03-17] MEDS: FLUoxetine HCL 20 MG CAPSULE (FP) PO SCH (10:30)
[2019-03-17] MEDS: NICOTINE 14 MG/24 HOURS TOPICAL PATCH TD SCH (10:30)
[2019-03-17] MEDS: THIAMINE HCL 100 MG TABLET (FP) PO SCH (21:43)
[2019-03-17] MEDS: PRAZOSIN HCL 1 MG CAPSULE PO SCH (21:43)
[2019-03-17] MEDS: MIRTAZAPINE 15 MG TABLET (FP) PO SCH (21:43)
[2019-03-18] MEDS: FLUoxetine HCL 20 MG CAPSULE (FP) PO SCH (10:42)
[2019-03-18] MEDS: PRENATAL VITAMINS W/ FOLIC ACID TABLET (FP) PO SCH (10:42)
[2019-03-18] MEDS: NICOTINE 14 MG/24 HOURS TOPICAL PATCH TD SCH (10:43)
[2019-03-18] MEDS: MIRTAZAPINE 15 MG TABLET (FP) PO SCH (21:07)
[2019-03-18] MEDS: MELATONIN 5 MG TABLETS PO PRN (21:07)
[2019-03-18] MEDS: PRAZOSIN HCL 1 MG CAPSULE PO SCH (21:07)
[2019-03-18] MEDS: THIAMINE HCL 100 MG TABLET (FP) PO SCH (21:07)
[2019-03-19] MEDS: NICOTINE 14 MG/24 HOURS TOPICAL PATCH TD SCH (10:56)
[2019-03-19] MEDS: FLUoxetine HCL 20 MG CAPSULE (FP) PO SCH (10:56)
[2019-03-19] MEDS: PRENATAL VITAMINS W/ FOLIC ACID TABLET (FP) PO SCH (10:56)
[2019-03-19] MEDS: PRAZOSIN HCL 1 MG CAPSULE PO SCH (21:58)
[2019-03-19] MEDS: MIRTAZAPINE 15 MG TABLET (FP) PO SCH (21:58)
[2019-03-19] MEDS: MELATONIN 5 MG TABLETS PO PRN (21:59)
[2019-03-19] MEDS: THIAMINE HCL 100 MG TABLET (FP) PO SCH (21:59)
[2019-03-20] MEDS: PRENATAL VITAMINS W/ FOLIC ACID TABLET (FP) PO SCH (10:53)
[2019-03-20] MEDS: FLUoxetine HCL 20 MG CAPSULE (FP) PO SCH (10:53)
[2019-03-20] MEDS: NICOTINE 14 MG/24 HOURS TOPICAL PATCH TD SCH (10:53)
[2019-03-20] MEDS: THIAMINE HCL 100 MG TABLET (FP) PO SCH (21:41)
[2019-03-20] MEDS: PRAZOSIN HCL 1 MG CAPSULE PO SCH (21:41)
[2019-03-20] MEDS: MIRTAZAPINE 15 MG TABLET (FP) PO SCH (21:41)
[2019-03-21] MEDS: FLUoxetine HCL 20 MG CAPSULE (FP) PO SCH (11:20)
[2019-03-21] MEDS: NICOTINE 14 MG/24 HOURS TOPICAL PATCH TD SCH (11:20)
[2019-03-21] MEDS: PRENATAL VITAMINS W/ FOLIC ACID TABLET (FP) PO SCH (11:20)
[2019-03-21] MEDS: PRAZOSIN HCL 1 MG CAPSULE PO SCH (21:08)
[2019-03-21] MEDS: MIRTAZAPINE 15 MG TABLET (FP) PO SCH (21:08)
[2019-03-21] MEDS: THIAMINE HCL 100 MG TABLET (FP) PO SCH (21:09)
[2019-03-21] MEDS: MELATONIN 5 MG TABLETS PO PRN (21:09)
[2019-03-22] MEDS: FLUoxetine HCL 20 MG CAPSULE (FP) PO SCH (11:00)
[2019-03-22] MEDS: PRENATAL VITAMINS W/ FOLIC ACID TABLET (FP) PO SCH (11:00)
[2019-03-22] MEDS: NICOTINE 14 MG/24 HOURS TOPICAL PATCH TD SCH (11:00)
[2019-03-22] MEDS: MIRTAZAPINE 15 MG TABLET (FP) PO SCH (21:46)
[2019-03-22] MEDS: PRAZOSIN HCL 1 MG CAPSULE PO SCH (21:46)
[2019-03-22] MEDS: MELATONIN 5 MG TABLETS PO PRN (21:47)
[2019-03-22] MEDS: THIAMINE HCL 100 MG TABLET (FP) PO SCH (21:47)
[2019-03-23] MEDS: FLUoxetine HCL 20 MG CAPSULE (FP) PO SCH (10:27)
[2019-03-23] MEDS: PRENATAL VITAMINS W/ FOLIC ACID TABLET (FP) PO SCH (10:27)
[2019-03-23] MEDS: NICOTINE 14 MG/24 HOURS TOPICAL PATCH TD SCH (10:27)
[2019-03-23] MEDS: MIRTAZAPINE 15 MG TABLET (FP) PO SCH (21:49)
[2019-03-23] MEDS: THIAMINE HCL 100 MG TABLET (FP) PO SCH (21:49)
[2019-03-23] MEDS: PRAZOSIN HCL 1 MG CAPSULE PO SCH (21:49)
[2019-03-24] MEDS: FLUoxetine HCL 20 MG CAPSULE (FP) PO SCH (10:53)
[2019-03-24] MEDS: PRENATAL VITAMINS W/ FOLIC ACID TABLET (FP) PO SCH (10:53)
[2019-03-24] MEDS: NICOTINE 14 MG/24 HOURS TOPICAL PATCH TD SCH (10:53)
--- NOTE | 2019-03-24 14:11 | PN ---
[facility] Progress Note Note: Patient is scheduled for discharge tomorrow. Scripts for 30 days supply of medications( Prozac 20 mg/day, Remeron 15 mg/hs, Prazosin 1 mg/hs) will be electronically transmitted to [facility] at [address] [place] [address]
[2019-03-24] MEDS: MIRTAZAPINE 15 MG TABLET (FP) PO SCH (21:15)
[2019-03-24] MEDS: MELATONIN 5 MG TABLETS PO PRN (21:15)
[2019-03-24] MEDS: THIAMINE HCL 100 MG TABLET (FP) PO SCH (21:15)
[2019-03-24] MEDS: PRAZOSIN HCL 1 MG CAPSULE PO SCH (21:16)
[2019-03-25 06:59] VITALS: BP 96/67; PULSE 69; TEMP 97.7
--- NOTE | 2019-03-25 08:12 | DS ---
[facility] Rehab Discharge Summary - [facility] Rehab Discharge Summary Admission Date: 03/11/19 Discharge Date: 03/25/19 - History Present History: Alcohol dependence, Cannabis dependence, PCP dependence Additional Comments: Pt is a 43 y/o male admitted to rehab for DEBORA and discharged today. Pt is a known pt of [facility] and is referred back to [facility] for continued aftercare until bed available at [facility]. Pt reports he has a primary care doctor on [place], [place] but does not remember his name off head. pt will follow up with his doctor after discharge from rehab. Pertinent Past History: Asthma Hx HLD(no current med) Hx cardiac pace maker(noncompliant with meds) PTSD - Discharge Physical Exam Vital Signs: Vital Signs Temperature 97.7 F 03/25/19 06:58 Pulse Rate 69 03/25/19 06:58 Respiratory Rate 18 03/25/19 06:58 Blood Pressure 96/67 03/25/19 06:58 O2 Sat by Pulse Oximetry (%) alert o x 3 nad oob ambulating with steady gait cardiac:s1 s2,rrr lungs:cta Abdomen;+bs,soft,flat,nt extremities:no edema,full ROM,skin intact Pertinent Admission Physical Exam Findings: Laboratory Tests 03/12/19 03/12/19 03/12/19 06:46 08:25 08:25 WBC 4.8 RBC 4.95 Hgb 13.4 Hct 40.0 MCV 80.8 MCH 27.0 MCHC 33.4 RDW 16.2 H Plt Count 269 D MPV 7.7 Sodium 140 Potassium 3.6 Chloride 104 Carbon Dioxide 29 Anion Gap 6 L BUN 9.9 Creatinine 0.8 Est GFR (CKD-EPI)AfAm 128.60 Est GFR (CKD-EPI)NonAf 110.96 Random Glucose 113 H Calcium 8.9 Total Bilirubin 0.5 AST 17 ALT 17 Alkaline Phosphatase 94 Total Protein 6.9 Albumin 3.4 Urine Color Yellow Urine Appearance Turbid Urine pH 6.0 Ur Specific [place] 1.016 Urine Protein Negative Urine Glucose (UA) Negative Urine Ketones Negative Urine Blood Trace Urine Nitrite Positive H Urine Bilirubin Negative Urine Urobilinogen 0.2 Ur Leukocyte Esterase 3+ H Urine WBC (Auto) 316 Urine RBC (Auto) 4 Urine Casts (Auto) 13 U Pathogenic Cast Auto Slide reviewed U Epithel Cells (Auto) 4.6 Urine Bacteria (Auto) 3327.4 RPR Titer 03/12/19 08:25 WBC RBC Hgb Hct MCV MCH MCHC RDW Plt Count MPV Sodium Potassium Chloride Carbon Dioxide Anion Gap BUN Creatinine Est GFR (CKD-EPI)AfAm Est GFR (CKD-EPI)NonAf Random Glucose Calcium Total Bilirubin AST ALT Alkaline Phosphatase Total Protein Albumin Urine Color Urine Appearance Urine pH Ur Specific [place] Urine Protein Urine Glucose (UA) Urine Ketones Urine Blood Urine Nitrite Urine Bilirubin Urine Urobilinogen Ur Leukocyte Esterase Urine WBC (Auto) Urine RBC (Auto) Urine Casts (Auto) U Pathogenic Cast Auto U Epithel Cells (Auto) Urine Bacteria (Auto) RPR Titer Nonreactive Unchanged and unremarkable - Treatment Discharge Condition: Discharge condition good Hospital Course: rehabilitated safely. Pt was mostly in bed/room except when he gets up as wanted. Pt's group participation was very minimal to none most days. - Medication Discharge Medications: Ambulatory Orders Sertraline HCl [Zoloft -] 50 mg PO DAILY #30 tablet 08/28/17 traZODone HCL [Desyrel -] 100 mg PO HS #30 tablet 08/28/17 Fluoxetine HCl [Prozac] 20 mg PO DAILY #30 capsule 03/24/19 Mirtazapine [Remeron -] 15 mg PO HS #30 tablet 03/24/19 Prazosin HCl 1 mg PO HS #30 capsule 03/24/19 Albuterol Sulfate Inhaler - [Ventolin HFA Inhaler -] 2 inh PO Q4H PRN #1 inhaler 03/25/19 - Medication-Assisted Treatment (MAT) Medication-Assisted Treatment (MAT): No - Discharge Instructions Diet, activity, other medical instructions: Diet:regular Activity: oob ad dean Other medical instructions:follow up with primary care provider on [place], [place] within 1-2 weeks after discharge. Follow up with [facility] aftercare at [address] as scheduled. Follow up with referral to [facility] treatment at [facility] as recommended when bed available. - Diagnosis (1) Alcohol use disorder Status: Chronic (2) Asthma Status: Chronic Qualifiers: Asthma severity: mild Asthma complication type: uncomplicated (3) Nicotine dependence Status: Chronic Qualifiers: Nicotine product type: cigarettes Substance use status: uncomplicated Qualified Code(s): F17.210 - Nicotine dependence, cigarettes, uncomplicated (4) History of cardiac pacemaker Status: Chronic (5) Hyperlipidemia Status: Chronic Qualifiers: Hyperlipidemia type: unspecified Qualified Code(s): E78.5 - Hyperlipidemia , unspecified - Follow-up Referral Minutes to complete discharge: 20 - AMA Did Patient Leave Against Medical Advice: No
== END 2019-03-25 09:06 | disposition home or self-care (01) | DRG 772 ==
LOC: YASAS 13:58 → Y5N 15:56
PROVIDERS: ADMIT Neuromusculoskeletal Medicine & OMM; ATTEND Neuromusculoskeletal Medicine & OMM
PROC: HZ42ZZZ Group Counseling for Substance Abuse Treatment, Cognitive-Behavioral (ICD-10-PCS; principal; 2019-03-11)
DX: F10.20 Alcohol dependence, uncomplicated (principal); F12.20 Cannabis dependence, uncomplicated; F16.10 Hallucinogen abuse, uncomplicated; F17.210 Nicotine dependence, cigarettes, uncomplicated; F43.10 Post-traumatic stress disorder, unspecified; F19.282 Other psychoactive substance dependence with psychoactive substance-induced sleep disorder; E78.5 Hyperlipidemia, unspecified; J45.909 Unspecified asthma, uncomplicated; Z95.0 Presence of cardiac pacemaker; Z91.14 Patient's other noncompliance with medication regimen
CPT/HCPCS: 36415; 80053; 81003; 85027; 86593